=== PATIENT | male | born 1970 | race Two or more races ===

== ENCOUNTER 2018-12-30 15:44 | Inpatient (IN) | payer SELFPAY ==
[~2018-12-30] VITALS: Ht 170.2 cm; Wt 95.3 kg
[2018-12-30] MEDS ORDERED: IV NORMAL SALINE 1000ML BAG 1,000 ML IV ONE (16:30)
[2018-12-30] MEDS ORDERED: MORPHINE SULFATE 4 MG/ML VIAL. IV ONE (16:30)
[2018-12-30] MEDS ORDERED: ONDANSETRON PF 4 MG/2 ML VIAL. IV ONE (16:30)
--- NOTE | 2018-12-30 16:33 | PHYS DOC ---
Adult General Chief Complaint Chief Complaint: ABDOMINAL PAIN HPI HPI Patient is a 48 year old male that presents with left lower part of pain ongoing for week. The patient scrubbed pain is intermittent in nature and sharp. The patient states that his pain level 7 out of 10 in severity and has not taken any pain medicine before arrival. Denies hx of diverticulitis. He states that he a bowel movement while hours ago and that did not improve the pain. (JODI THORNTON APRN) Review of Systems Review of Systems Constitutional: Denies fever or chills [] Eyes: Denies change in visual acuity, redness, or eye pain [] HENT: Denies nasal congestion or sore throat [] Respiratory: Denies cough or shortness of breath [] Cardiovascular: No additional information not addressed in HPI [] GI: Reports abdominal pain, nausea, Denies vomiting, bloody stools or diarrhea [] : Denies dysuria or hematuria [] Musculoskeletal: Denies back pain or joint pain [] Integument: Denies rash or skin lesions [] Neurologic: Denies headache, focal weakness or sensory changes [] Endocrine: Denies polyuria or polydipsia [] Complete systems were reviewed and found to be within normal limits, except as documented in this note. (JODI THORNTON APRN) Current Medications Current Medications Current Medications Medications (Trade) Dose Ordered Sig/Casi Start Time Stop Time Status Last Admin Dose Admin Info (CONTRAST GIVEN -- Rx MONITORING) 1 each PRN DAILY PRN 12/30/18 17:15 01/01/19 17:14 Iohexol (Omnipaque 300 Mg/ml) 100 ml 1X ONCE 12/30/18 17:15 12/30/18 17:16 DC 12/30/18 17:23 100 ML Morphine Sulfate (Morphine Sulfate) 4 mg 1X ONCE 12/30/18 16:30 12/30/18 16:45 DC 12/30/18 17:02 4 MG Ondansetron HCl (Zofran) 4 mg 1X ONCE 12/30/18 16:30 12/30/18 16:45 DC 12/30/18 17:00 4 MG Sodium Chloride 1,000 ml @ 1,000 mls/hr 1X ONCE 12/30/18 16:30 12/30/18 17:29 DC 12/30/18 17:02 1,000 MLS/HR (RAFA OH MD) Allergies Allergies Allergies Coded Allergies Type Severity Reaction Last Updated Verified No Known Drug Allergies 12/30/18 No (RAFA OH MD) Physical Exam Physical Exam Constitutional: Well developed, well nourished, no acute distress, non-toxic appearance. [] HENT: Normocephalic, atraumatic, bilateral external ears normal, oropharynx moist, no oral exudates, nose normal. [] Eyes: PERRLA, EOMI, conjunctiva normal, no discharge. [] Neck: Normal range of motion, no tenderness, supple, no stridor. [] Cardiovascular:Heart rate regular rhythm, no murmur [] Lungs & Thorax: Bilateral breath sounds clear to auscultation [] Abdomen: Bowel sounds normal, soft, LLQ abdominal tenderness, no masses, no pulsatile masses. [] Skin: Warm, dry, no erythema, no rash. [] Back: No tenderness, no CVA tenderness. [] Extremities: No tenderness, no cyanosis, no clubbing, ROM intact, no edema. [] Neurologic: Alert and oriented X 3, normal motor function, normal sensory function, no focal deficits noted. [] Psychologic: Affect normal, judgement normal, mood normal. [] (JODI THORNTON APRN) Current Patient Data Vital Signs Vital Signs Date Time Temp Pulse Resp B/P (MAP) Pulse Ox O2 Delivery O2 Flow Rate FiO2 12/30/18 17:26 98 18 123/68 (86) 98 Room Air 12/30/18 16:33 97.8 97.8 (RAFA OH MD) Lab Values Laboratory Tests Test 12/30/18 16:42 White Blood Count 13.9 x10^3/uL (4.0-11.0) H Red Blood Count 5.08 x10^6/uL (4.30-5.70) Hemoglobin 15.7 g/dL (13.0-17.5) Hematocrit 46.6 % (39.0-53.0) Mean Corpuscular Volume 92 fL (79-100) Mean Corpuscular Hemoglobin 31 pg (25-35) Mean Corpuscular Hemoglobin Concent 34 g/dL (31-37) Red Cell Distribution Width 13.0 % (11.5-14.5) Platelet Count 289 x10^3/uL (140-400) Neutrophils (%) (Auto) 77 % (31-73) H Lymphocytes (%) (Auto) 13 % (24-48) L Monocytes (%) (Auto) 8 % (0-9) Eosinophils (%) (Auto) 2 % (0-3) Basophils (%) (Auto) 1 % (0-3) Neutrophils # (Auto) 10.7 x10^3/uL (1.8-7.7) H Lymphocytes # (Auto) 1.9 x10^3/uL (1.0-4.8) Monocytes # (Auto) 1.0 x10^3/uL (0.0-1.1) Eosinophils # (Auto) 0.3 x10^3/uL (0.0-0.7) Basophils # (Auto) 0.1 x10^3/uL (0.0-0.2) Sodium Level 143 mmol/L (136-145) Potassium Level 3.9 mmol/L (3.5-5.1) Chloride Level 108 mmol/L (98-107) H Carbon Dioxide Level 26 mmol/L (21-32) Anion Gap 9 (6-14) Blood Urea Nitrogen 13 mg/dL (8-26) Creatinine 0.9 mg/dL (0.7-1.3) Estimated GFR (Cockcroft-Gault) 90.4 BUN/Creatinine Ratio 14 (6-20) Glucose Level 111 mg/dL (70-99) H Calcium Level 8.9 mg/dL (8.5-10.1) Total Bilirubin 0.4 mg/dL (0.2-1.0) Aspartate Amino Transferase (AST) 18 U/L (15-37) Alanine Aminotransferase (ALT) 42 U/L (16-63) Alkaline Phosphatase 69 U/L (46-116) Total Protein 7.6 g/dL (6.4-8.2) Albumin 4.1 g/dL (3.4-5.0) Albumin/Globulin Ratio 1.2 (1.0-1.7) Lipase 142 U/L (73-393) Laboratory Tests 12/30/18 16:42 Laboratory Tests 12/30/18 16:42 (RAFA OH MD) Lab Values Laboratory Tests Test 12/30/18 16:42 White Blood Count 13.9 x10^3/uL (4.0-11.0) H Red Blood Count 5.08 x10^6/uL (4.30-5.70) Hemoglobin 15.7 g/dL (13.0-17.5) Hematocrit 46.6 % (39.0-53.0) Mean Corpuscular Volume 92 fL (79-100) Mean Corpuscular Hemoglobin 31 pg (25-35) Mean Corpuscular Hemoglobin Concent 34 g/dL (31-37) Red Cell Distribution Width 13.0 % (11.5-14.5) Platelet Count 289 x10^3/uL (140-400) Neutrophils (%) (Auto) 77 % (31-73) H Lymphocytes (%) (Auto) 13 % (24-48) L Monocytes (%) (Auto) 8 % (0-9) Eosinophils (%) (Auto) 2 % (0-3) Basophils (%) (Auto) 1 % (0-3) Neutrophils # (Auto) 10.7 x10^3/uL (1.8-7.7) H Lymphocytes # (Auto) 1.9 x10^3/uL (1.0-4.8) Monocytes # (Auto) 1.0 x10^3/uL (0.0-1.1) Eosinophils # (Auto) 0.3 x10^3/uL (0.0-0.7) Basophils # (Auto) 0.1 x10^3/uL (0.0-0.2) Sodium Level 143 mmol/L (136-145) Potassium Level 3.9 mmol/L (3.5-5.1) Chloride Level 108 mmol/L (98-107) H Carbon Dioxide Level 26 mmol/L (21-32) Anion Gap 9 (6-14) Blood Urea Nitrogen 13 mg/dL (8-26) Creatinine 0.9 mg/dL (0.7-1.3) Estimated GFR (Cockcroft-Gault) 90.4 BUN/Creatinine Ratio 14 (6-20) Glucose Level 111 mg/dL (70-99) H Calcium Level 8.9 mg/dL (8.5-10.1) Total Bilirubin 0.4 mg/dL (0.2-1.0) Aspartate Amino Transferase (AST) 18 U/L (15-37) Alanine Aminotransferase (ALT) 42 U/L (16-63) Alkaline Phosphatase 69 U/L (46-116) Total Protein 7.6 g/dL (6.4-8.2) Albumin 4.1 g/dL (3.4-5.0) Albumin/Globulin Ratio 1.2 (1.0-1.7) Lipase 142 U/L (73-393) Laboratory Tests 12/30/18 16:42 Laboratory Tests 12/30/18 16:42 (JODI THORNTON APRN) EKG EKG [] (JODI THORNTON APRN) Radiology/Procedures Radiology/Procedures [][facility] [address] [place] [address] IMAGING REPORT Signed PATIENT: MARIA L ADLERUNT: [id number] : 1970 LOCATION: ER AGE: 48 SEX: M EXAM STATUS: REG ER ORD. PHYSICIAN: JODI THORNTON APRN REASON: llq abdominal pain PROCEDURE: CT ABD PELV W/ IV CONTRST ONLY CT abdomen and pelvis with contrast TECHNIQUE: Helical CT imaging abdomen and pelvis with 75 mL Omnipaque 300 intravenous contrast. PQRS statement: CT scans at this facility use dose reduction including either automated exposure control, iterative reconstructions, and /or weight based radiation dosing via mA and kV modification when appropriate to reduce radiation dose to as low as reasonably achievable. HISTORY: Left lower quadrant abdominal pain. Abdomen findings: Mild discoid atelectasis lung bases. Lumbar disc bulges with spinal canal stenoses. T12 thoracic ossified disc protrusion with partial severe canal stenosis. Bilateral renal small subcentimeter hypodense lesions are too small to characterize due to volume averaging. Exophytic left renal midpole 1.2 cm cyst with a density 13 units. Pancreas, adrenal glands, spleen, liver and gallbladder are unremarkable. Appendix is negative. Left colonic diverticulosis with sigmoid diverticulitis with surrounding edema, no evidence of perforation with no pneumoperitoneum or abscess evident. No abdominal fluid or adenopathy. Mild calcified plaque of the aorta. Pelvis findings: Bladder, prostate, rectum and bones are unremarkable. No fluid or adenopathy. IMPRESSION: 1. Sigmoid colon diverticulitis. No abscess evident. 2. The appendix is negative. Electronically signed by: Tom Sky MD (12/30/2018 5:35 PM) [facility] DICTATED and SIGNED BY: TOM SKY MD DATE: 12/30/181734 (JODI THORNTON APRN) Course & Med Decision Making Course & Med Decision Making Pertinent Labs and Imaging studies reviewed. (See chart for details) Will get labs, CT, and give supportive care. CT shows diverticulitis, labs show elevated WBC of 13.9. Patient has been tachycardic in ER. Will order antibiotics and admit to hospital. Discussed with Dr. Rice who agrees to admission to hospital ([id number]). (JODI THORNTON APRN) Course & Med Decision Making I was not involved in the care of this patient after 1800 on 12/30/18. (RAFA OH MD) Dragon Disclaimer Dragon Disclaimer This electronic medical record was generated, in whole or in part, using a voice recognition dictation system. (JODI THORNTON APRN) Departure Departure Impression: Primary Impression: Diverticulitis Disposition: ADMITTED INPATIENT Admitting Physician: TOYA (JODI THORNTON APRN) Condition: STABLE Referrals: NO PCP (PCP) Scripts Oxycodone/Apap 5-325 (PERCOCET 5-325 MG TABLET ) 1 Each Tablet 1 TAB PO PRN Q6HRS PRN for PAIN for 6 Days, #24 TAB Prov: FLAVIO VENTURA MD 12/31/18 Ciprofloxacin Hcl (CIPROFLOXACIN HCL) 500 Mg Tablet 1 TAB PO BID for Diverticulitis for 10 Days, #20 TAB Prov: FLAVIO VENTURA MD 12/31/18 Polyethylene Glycol 3350 (POLYETHYLENE GLYCOL 3350) 17 Gm Powd.pack 17 GM PO DAILY for constipation for 10 Days, #10 PKT Prov: FLAVIO VENTURA MD 12/31/18 Psyllium Husk/Aspartame (METAMUCIL FIBER SINGLES PACKET) 3.4 Gm Powd.pack 1 PKT PO DAILY for Constipation for 10 Days, #10 PKT Prov: FLAVIO VENTURA MD 12/31/18 Docusate Sodium (DOCUSATE SODIUM) 100 Mg Capsule 100 MG PO DAILY for Constipation for 10 Days, #10 CAP Prov: FLAVIO VENTURA MD 12/31/18 Metronidazole (FLAGYL) 500 Mg Tablet 500 MG PO Q8HRS for Diverticulitis for 10 Days, #30 TAB Prov: FLAVIO VENTURA MD 12/31/18 JODI THORNTON APRN Dec 30, 2018 16:33 RAFA OH MD Dec 31, 2018 18:19
[2018-12-30 16:49] LABS: BASO # 0.1 x10^3/uL (0.0-0.2); BASO % 1 % (0-3); EOS # 0.3 x10^3/uL (0.0-0.7); EOS % 2 % (0-3); HEMATOCRIT 46.6 % (39.0-53.0); HEMOGLOBIN 15.7 g/dL (13.0-17.5); LYMPH # 1.9 x10^3/uL (1.0-4.8); LYMPH % 13 % (24-48); MEAN CORPUSCULAR HEMOGLOBIN 31 pg (25-35); MEAN CORPUSCULAR HGB CONC 34 g/dL (31-37); MEAN CORPUSCULAR VOLUME 92 fL (79-100); MONO % 8 % (0-9); NEUT # 10.7 x10^3/uL (1.8-7.7); NEUT % 77 % (31-73); PLATELET COUNT 289 x10^3/uL (140-400); RED BLOOD COUNT 5.08 x10^6/uL (4.30-5.70); WHITE BLOOD COUNT 13.9 x10^3/uL (4.0-11.0)
[2018-12-30 17:01] LABS: CALCIUM 8.9 mg/dL (8.5-10.1); CREATININE 0.9 mg/dL (0.7-1.3); GFR 90.4; POTASSIUM 3.9 mmol/L (3.5-5.1)
[2018-12-30 17:07] LABS: ALBUMIN 4.1 g/dL (3.4-5.0); ALBUMIN/GLOBULIN RATIO 1.2 (1.0-1.7); TOTAL BILIRUBIN 0.4 mg/dL (0.2-1.0); TOTAL PROTEIN 7.6 g/dL (6.4-8.2)
[2018-12-30] MEDS ORDERED: CONTRAST GIVEN. MC PRN (17:15)
[2018-12-30] MEDS ORDERED: IOHEXOL 300 MG/ML 100ML VIAL. IV ONE (17:15)
--- NOTE | 2018-12-30 17:38 | RAD ---
CT abdomen and pelvis with contrast TECHNIQUE: Helical CT imaging abdomen and pelvis with 75 mL Omnipaque 300 intravenous contrast. PQRS statement: CT scans at this facility use dose reduction including either automated exposure control, iterative reconstructions, and /or weight based radiation dosing via mA and kV modification when appropriate to reduce radiation dose to as low as reasonably achievable. HISTORY: Left lower quadrant abdominal pain. Abdomen findings: Mild discoid atelectasis lung bases. Lumbar disc bulges with spinal canal stenoses. T12 thoracic ossified disc protrusion with partial severe canal stenosis. Bilateral renal small subcentimeter hypodense lesions are too small to characterize due to volume averaging. Exophytic left renal midpole 1.2 cm cyst with a density 13 units. Pancreas, adrenal glands, spleen, liver and gallbladder are unremarkable. Appendix is negative. Left colonic diverticulosis with sigmoid diverticulitis with surrounding edema, no evidence of perforation with no pneumoperitoneum or abscess evident. No abdominal fluid or adenopathy. Mild calcified plaque of the aorta. Pelvis findings: Bladder, prostate, rectum and bones are unremarkable. No fluid or adenopathy. IMPRESSION: 1. Sigmoid colon diverticulitis. No abscess evident. 2. The appendix is negative. Electronically signed by: Abrahan Sky MD (12/30/2018 5:35 PM) [facility]
[2018-12-30] MEDS ORDERED: cefTRIAXone IV Push 1 GM VIAL. IVP ONE (18:00)
[2018-12-30] MEDS ORDERED: ONDANSETRON PF 4 MG/2 ML VIAL. IV PRN (18:45)
[2018-12-30] MEDS ORDERED: MORPHINE SULFATE 2 MG/ML VIAL. IV PRN (18:45)
[2018-12-30 18:50] LABS: BILIRUBIN,URINE NEGATIVE (NEG); CLARITY,URINE CLEAR; COLOR,URINE YELLOW; NITRITE,URINE NEGATIVE (NEG); PROTEIN,URINE NEGATIVE (NEG-TRACE); UROBILINOGEN,URINE 0.2 mg/dL (0.2 mg/dL)
[2018-12-30 19:02] LABS: BACTERIA,URINE 0 /HPF (0-FEW); SQUAMOUS EPITHELIAL CELL,UR MOD /LPF
--- NOTE | 2018-12-30 19:30 | NUR ---
ADMISSION NOTE The patient, MARIA L ADLER, 48 y/o, M admitted by CARLIE PACHECO MD, arrived to room 556 via wheelchair accompanied by ED staff and roommate. The pt was given written information regarding hospital policies, unit procedures and contact persons. Valuables were checked and left in room with pt. Pt screened for flu vaccine and offered, pt declined.
[2018-12-30 20:00] VITALS: BP 125/72
--- NOTE | 2018-12-30 22:26 | PDOC1 ---
History and Physical Date of Admission Date of Admission DATE: 12/30/18 TIME: 22:25 History of Present Illness History of Present Illness Ang is a 48 year old male, primarily icelandic speaking, that presents with left lower part of pain ongoing for week. he is hungry and thirsty, but complains of pain, worse with movement, pain 6/10 no diarrhea, no n.v, no fever. . Denies hx of diverticulitis. Had a normal bowel movement hours ago and that did not improve the pain. Social History ALCOHOL: rare Drugs: None Current Problem List Problem List Problems Medical Problems: (1) Diverticulitis Status: Acute Current Medications Current Medications Current Medications Morphine Sulfate (Morphine Sulfate) 4 mg 1X ONCE IV Last administered on 12/30/18at 17:02; Start 12/30/18 at 16:30; Stop 12/30/18 at 16:45; Status DC Sodium Chloride 1,000 ml @ 1,000 mls/hr 1X ONCE IV Last administered on 12/30/18at 17:02; Start 12/30/18 at 16:30; Stop 12/30/18 at 17:29; Status DC Ondansetron HCl (Zofran) 4 mg 1X ONCE IV Last administered on 12/30/18at 17:00; Start 12/30/18 at 16:30; Stop 12/30/18 at 16:45; Status DC Iohexol (Omnipaque 300 Mg/ml) 100 ml 1X ONCE IV Last administered on 12/30/18at 17:23; Start 12/30/18 at 17:15; Stop 12/30/18 at 17:16; Status DC Info (CONTRAST GIVEN -- Rx MONITORING) 1 each PRN DAILY PRN MC SEE COMMENTS; Start 12/30/18 at 17:15; Stop 01/01/19 at 17:14 Metronidazole 100 ml @ 100 mls/hr 1X ONCE IV Last administered on 12/30/18at 18:23; Start 12/30/18 at 18:00; Stop 12/30/18 at 18:59; Status DC Ceftriaxone Sodium (Rocephin) 1 gm 1X ONCE IVP Last administered on 12/30/18at 18:21; Start 12/30/18 at 18:00; Stop 12/30/18 at 18:01; Status DC Ondansetron HCl (Zofran) 4 mg PRN Q8HRS PRN IV NAUSEA/VOMITING; Start 12/30/18 at 18:45; Stop 12/31/18 at 18:44 Morphine Sulfate (Morphine Sulfate) 2 mg PRN Q2HR PRN IV PAIN; Start 12/30/18 at 18:45; Stop 12/31/18 at 23:58 Allergies Allergies: Coded Allergies: No Known Drug Allergies (Unverified , 12/30/18) ROS General: No: Chills, Night Sweats, Fatigue, Malaise, Appetite, Other PSYCHOLOGICAL ROS: No: Anxiety, Behavioral Disorder, Concentration difficultie, Decreased libido, Depression, Disorientation, Hallucinations, Hostility, Irritablity, Memory difficulties, Mood Swings, Obsessive thoughts, Physical abuse, Sexual abuse, Sleep disturbances, Suicidal ideation, Other Eyes: No Blurry vision, No Decreased vision, No Double vision, No Dry eyes, No Excessive tearing, No Eye Pain, No Itchy Eyes, No Loss of vision, No Photophobia, No Scotomata, No Uses contacts, No Uses glasses, No Other HEENT: No: Heacaches, Visual Changes, Hearing change, Nasal congestion, Nasal discharge, Oral lesions, Sinus pain, Sore Throat, Epistaxis, Sneezing, Snoring, Tinnitus, Vertigo, Vocal changes, Other Musculoskeletal: No Gait Disturbance, No Joint Pain, No Joint Stiffness, No Joint Swelling, No Muscle Pain, No Muscular Weakness, No Pain In:, No Swelling In:, No Other Neurological: No Behavorial Changes, No Bowel/Bladder ControlChng, No Confusion, No Dizziness, No Gait Disturbance, No Headaches, No Impaired Coord/balance, No Memory Loss, No Numbness/Tingling, No Seizures, No Speech Problems, No Tremors, No Visual Changes, No Weakness, No Other Skin: No Dry Skin, No Eczema, No Hair Changes, No Lumps, No Mole Changes, No Mottling, No Nail Changes, No Pruritus, No Rash, No Skin Lesion Changes, No Other, No Acne Physical Exam General: Alert, Oriented X3, Cooperative, mild distress HEENT: Atraumatic, PERRLA, Mucous membr. moist/pink Lungs: Clear to auscultation Heart: S1S2, RRR Abdomen: Soft, Other (tender LLQ, no guarding or rebound) Extremities: No clubbing, Normal pulses Skin: No breakdown, No significant lesion Neuro: Normal speech, Normal tone, Cranial nerves 3-12 NL Psych/Mental Status: Mental status NL, Mood NL Vitals Vitals Vital Signs Date Time Temp Pulse Resp B/P (MAP) Pulse Ox O2 Delivery O2 Flow Rate FiO2 12/30/18 19:30 Room Air 12/30/18 17:56 90 18 128/59 (82) 98 12/30/18 16:33 97.8 97.8 Labs Labs Laboratory Tests Test 12/30/18 16:42 12/30/18 18:14 White Blood Count 13.9 x10^3/uL (4.0-11.0) Red Blood Count 5.08 x10^6/uL (4.30-5.70) Hemoglobin 15.7 g/dL (13.0-17.5) Hematocrit 46.6 % (39.0-53.0) Mean Corpuscular Volume 92 fL (79-100) Mean Corpuscular Hemoglobin 31 pg (25-35) Mean Corpuscular Hemoglobin Concent 34 g/dL (31-37) Red Cell Distribution Width 13.0 % (11.5-14.5) Platelet Count 289 x10^3/uL (140-400) Neutrophils (%) (Auto) 77 % (31-73) Lymphocytes (%) (Auto) 13 % (24-48) Monocytes (%) (Auto) 8 % (0-9) Eosinophils (%) (Auto) 2 % (0-3) Basophils (%) (Auto) 1 % (0-3) Neutrophils # (Auto) 10.7 x10^3/uL (1.8-7.7) Lymphocytes # (Auto) 1.9 x10^3/uL (1.0-4.8) Monocytes # (Auto) 1.0 x10^3/uL (0.0-1.1) Eosinophils # (Auto) 0.3 x10^3/uL (0.0-0.7) Basophils # (Auto) 0.1 x10^3/uL (0.0-0.2) Sodium Level 143 mmol/L (136-145) Potassium Level 3.9 mmol/L (3.5-5.1) Chloride Level 108 mmol/L (98-107) Carbon Dioxide Level 26 mmol/L (21-32) Anion Gap 9 (6-14) Blood Urea Nitrogen 13 mg/dL (8-26) Creatinine 0.9 mg/dL (0.7-1.3) Estimated GFR (Cockcroft-Gault) 90.4 BUN/Creatinine Ratio 14 (6-20) Glucose Level 111 mg/dL (70-99) Calcium Level 8.9 mg/dL (8.5-10.1) Total Bilirubin 0.4 mg/dL (0.2-1.0) Aspartate Amino Transf (AST/SGOT) 18 U/L (15-37) Alanine Aminotransferase (ALT/SGPT) 42 U/L (16-63) Alkaline Phosphatase 69 U/L (46-116) Total Protein 7.6 g/dL (6.4-8.2) Albumin 4.1 g/dL (3.4-5.0) Albumin/Globulin Ratio 1.2 (1.0-1.7) Lipase 142 U/L (73-393) Urine Collection Type Unknown Urine Color Yellow Urine Clarity Clear Urine pH 6.0 Urine Specific [place] >=1.030 Urine Protein Negative mg/dL (NEG-TRACE) Urine Glucose (UA) Negative mg/dL (NEG) Urine Ketones (Stick) Negative mg/dL (NEG) Urine Blood Negative (NEG) Urine Nitrite Negative (NEG) Urine Bilirubin Negative (NEG) Urine Urobilinogen Dipstick 0.2 mg/dL (0.2 mg/dL) Urine Leukocyte Esterase Negative (NEG) Urine RBC 1-2 /HPF (0-2) Urine WBC 1-4 /HPF (0-4) Urine Squamous Epithelial Cells Mod /LPF Urine Bacteria 0 /HPF (0-FEW) Laboratory Tests Test 12/30/18 16:42 12/30/18 18:14 White Blood Count 13.9 x10^3/uL (4.0-11.0) Red Blood Count 5.08 x10^6/uL (4.30-5.70) Hemoglobin 15.7 g/dL (13.0-17.5) Hematocrit 46.6 % (39.0-53.0) Mean Corpuscular Volume 92 fL (79-100) Mean Corpuscular Hemoglobin 31 pg (25-35) Mean Corpuscular Hemoglobin Concent 34 g/dL (31-37) Red Cell Distribution Width 13.0 % (11.5-14.5) Platelet Count 289 x10^3/uL (140-400) Neutrophils (%) (Auto) 77 % (31-73) Lymphocytes (%) (Auto) 13 % (24-48) Monocytes (%) (Auto) 8 % (0-9) Eosinophils (%) (Auto) 2 % (0-3) Basophils (%) (Auto) 1 % (0-3) Neutrophils # (Auto) 10.7 x10^3/uL (1.8-7.7) Lymphocytes # (Auto) 1.9 x10^3/uL (1.0-4.8) Monocytes # (Auto) 1.0 x10^3/uL (0.0-1.1) Eosinophils # (Auto) 0.3 x10^3/uL (0.0-0.7) Basophils # (Auto) 0.1 x10^3/uL (0.0-0.2) Sodium Level 143 mmol/L (136-145) Potassium Level 3.9 mmol/L (3.5-5.1) Chloride Level 108 mmol/L (98-107) Carbon Dioxide Level 26 mmol/L (21-32) Anion Gap 9 (6-14) Blood Urea Nitrogen 13 mg/dL (8-26) Creatinine 0.9 mg/dL (0.7-1.3) Estimated GFR (Cockcroft-Gault) 90.4 BUN/Creatinine Ratio 14 (6-20) Glucose Level 111 mg/dL (70-99) Calcium Level 8.9 mg/dL (8.5-10.1) Total Bilirubin 0.4 mg/dL (0.2-1.0) Aspartate Amino Transf (AST/SGOT) 18 U/L (15-37) Alanine Aminotransferase (ALT/SGPT) 42 U/L (16-63) Alkaline Phosphatase 69 U/L (46-116) Total Protein 7.6 g/dL (6.4-8.2) Albumin 4.1 g/dL (3.4-5.0) Albumin/Globulin Ratio 1.2 (1.0-1.7) Lipase 142 U/L (73-393) Urine Collection Type Unknown Urine Color Yellow Urine Clarity Clear Urine pH 6.0 Urine Specific [place] >=1.030 Urine Protein Negative mg/dL (NEG-TRACE) Urine Glucose (UA) Negative mg/dL (NEG) Urine Ketones (Stick) Negative mg/dL (NEG) Urine Blood Negative (NEG) Urine Nitrite Negative (NEG) Urine Bilirubin Negative (NEG) Urine Urobilinogen Dipstick 0.2 mg/dL (0.2 mg/dL) Urine Leukocyte Esterase Negative (NEG) Urine RBC 1-2 /HPF (0-2) Urine WBC 1-4 /HPF (0-4) Urine Squamous Epithelial Cells Mod /LPF Urine Bacteria 0 /HPF (0-FEW) VTE Prophylaxis Ordered VTE Prophylaxis Devices: No VTE Pharmacological Prophylaxi: Yes Assessment/Plan Assessment/Plan sepsis, diverticulitis admit IV fluid abx, ID consult, CARLIE PACHECO MD Dec 30, 2018 22:26
[2018-12-30 23:00] VITALS: BP 128/76
[2018-12-30] MEDS ORDERED: ZOLPIDEM 5 MG TABLET. PO PRN (23:00)
[2018-12-30] MEDS ORDERED: CIPROFLOXACIN HCL 250 MG TABLET. PO ONE (23:00)
[2018-12-30] MEDS ORDERED: metroNIDAZOLE 500 MG TABLET PO ONE (23:00)
[2018-12-30] MEDS: oxyCODONE/APAP 5/325 1 TAB TABLET PO PRN (23:11)
[2018-12-31 03:00] VITALS: BP 113/69
[2018-12-31] MEDS: metroNIDAZOLE 500 MG TABLET PO SCH ×2 (05:54→14:23)
[2018-12-31 07:00] VITALS: BP 122/74
--- NOTE | 2018-12-31 08:42 | PDOC ---
PROGRESS NOTES Chief Complaint Chief Complaint A/P: Sepsis - leukocytosis, tachycardia, diverticulitis found. IVF and empiric cipro and flagyl initiated Diverticulitis - will place on fiber supplement, cont antibiotics FEN - Low residue PPX - Lovenox FULL CODE Dispo - inpatient History of Present Illness History of Present Illness Mr Jeff is a 48 year old male, primarily [place] speaking, who presents with left lower abdominal pain ongoing for week. Worse with movement, pain 6/10, no diarrhea, no n.v, no fever. BM does not improve pain. CT findings consistent with sigmoid diverticulitis. Pain improved, transitioning to PO antibiotics this morning, added bowel regimen. Discussed low residue diet. He is somewhat anxious for d/c. I initially told him possibly home tomorrow morning, but if he tolerates PO well throughout the day without pain and has a BM he can go home later. Vitals Vitals Vital Signs Date Time Temp Pulse Resp B/P (MAP) Pulse Ox O2 Delivery O2 Flow Rate FiO2 12/31/18 07:00 98.1 67 16 122/74 (90) 95 Room Air 98.1 Physical Exam General: Alert, Oriented X3, Cooperative, mild distress Abdomen: Soft, Other (tender LLQ, no guarding or rebound) Extremities: No clubbing, Normal pulses Skin: No breakdown, No significant lesion Labs LABS Laboratory Tests Test 12/30/18 16:42 12/30/18 18:14 White Blood Count 13.9 x10^3/uL (4.0-11.0) Red Blood Count 5.08 x10^6/uL (4.30-5.70) Hemoglobin 15.7 g/dL (13.0-17.5) Hematocrit 46.6 % (39.0-53.0) Mean Corpuscular Volume 92 fL (79-100) Mean Corpuscular Hemoglobin 31 pg (25-35) Mean Corpuscular Hemoglobin Concent 34 g/dL (31-37) Red Cell Distribution Width 13.0 % (11.5-14.5) Platelet Count 289 x10^3/uL (140-400) Neutrophils (%) (Auto) 77 % (31-73) Lymphocytes (%) (Auto) 13 % (24-48) Monocytes (%) (Auto) 8 % (0-9) Eosinophils (%) (Auto) 2 % (0-3) Basophils (%) (Auto) 1 % (0-3) Neutrophils # (Auto) 10.7 x10^3/uL (1.8-7.7) Lymphocytes # (Auto) 1.9 x10^3/uL (1.0-4.8) Monocytes # (Auto) 1.0 x10^3/uL (0.0-1.1) Eosinophils # (Auto) 0.3 x10^3/uL (0.0-0.7) Basophils # (Auto) 0.1 x10^3/uL (0.0-0.2) Sodium Level 143 mmol/L (136-145) Potassium Level 3.9 mmol/L (3.5-5.1) Chloride Level 108 mmol/L (98-107) Carbon Dioxide Level 26 mmol/L (21-32) Anion Gap 9 (6-14) Blood Urea Nitrogen 13 mg/dL (8-26) Creatinine 0.9 mg/dL (0.7-1.3) Estimated GFR (Cockcroft-Gault) 90.4 BUN/Creatinine Ratio 14 (6-20) Glucose Level 111 mg/dL (70-99) Calcium Level 8.9 mg/dL (8.5-10.1) Total Bilirubin 0.4 mg/dL (0.2-1.0) Aspartate Amino Transf (AST/SGOT) 18 U/L (15-37) Alanine Aminotransferase (ALT/SGPT) 42 U/L (16-63) Alkaline Phosphatase 69 U/L (46-116) Total Protein 7.6 g/dL (6.4-8.2) Albumin 4.1 g/dL (3.4-5.0) Albumin/Globulin Ratio 1.2 (1.0-1.7) Lipase 142 U/L (73-393) Urine Collection Type Unknown Urine Color Yellow Urine Clarity Clear Urine pH 6.0 Urine Specific [place] >=1.030 Urine Protein Negative mg/dL (NEG-TRACE) Urine Glucose (UA) Negative mg/dL (NEG) Urine Ketones (Stick) Negative mg/dL (NEG) Urine Blood Negative (NEG) Urine Nitrite Negative (NEG) Urine Bilirubin Negative (NEG) Urine Urobilinogen Dipstick 0.2 mg/dL (0.2 mg/dL) Urine Leukocyte Esterase Negative (NEG) Urine RBC 1-2 /HPF (0-2) Urine WBC 1-4 /HPF (0-4) Urine Squamous Epithelial Cells Mod /LPF Urine Bacteria 0 /HPF (0-FEW) Assessment and Plan Assessmemt and Plan Problems Medical Problems: (1) Diverticulitis Status: Acute Comment Review of Relevant I have reviewed the following items evaristo (where applicable) has been applied. Labs Laboratory Tests Test 12/30/18 16:42 12/30/18 18:14 White Blood Count 13.9 x10^3/uL (4.0-11.0) Red Blood Count 5.08 x10^6/uL (4.30-5.70) Hemoglobin 15.7 g/dL (13.0-17.5) Hematocrit 46.6 % (39.0-53.0) Mean Corpuscular Volume 92 fL (79-100) Mean Corpuscular Hemoglobin 31 pg (25-35) Mean Corpuscular Hemoglobin Concent 34 g/dL (31-37) Red Cell Distribution Width 13.0 % (11.5-14.5) Platelet Count 289 x10^3/uL (140-400) Neutrophils (%) (Auto) 77 % (31-73) Lymphocytes (%) (Auto) 13 % (24-48) Monocytes (%) (Auto) 8 % (0-9) Eosinophils (%) (Auto) 2 % (0-3) Basophils (%) (Auto) 1 % (0-3) Neutrophils # (Auto) 10.7 x10^3/uL (1.8-7.7) Lymphocytes # (Auto) 1.9 x10^3/uL (1.0-4.8) Monocytes # (Auto) 1.0 x10^3/uL (0.0-1.1) Eosinophils # (Auto) 0.3 x10^3/uL (0.0-0.7) Basophils # (Auto) 0.1 x10^3/uL (0.0-0.2) Sodium Level 143 mmol/L (136-145) Potassium Level 3.9 mmol/L (3.5-5.1) Chloride Level 108 mmol/L (98-107) Carbon Dioxide Level 26 mmol/L (21-32) Anion Gap 9 (6-14) Blood Urea Nitrogen 13 mg/dL (8-26) Creatinine 0.9 mg/dL (0.7-1.3) Estimated GFR (Cockcroft-Gault) 90.4 BUN/Creatinine Ratio 14 (6-20) Glucose Level 111 mg/dL (70-99) Calcium Level 8.9 mg/dL (8.5-10.1) Total Bilirubin 0.4 mg/dL (0.2-1.0) Aspartate Amino Transf (AST/SGOT) 18 U/L (15-37) Alanine Aminotransferase (ALT/SGPT) 42 U/L (16-63) Alkaline Phosphatase 69 U/L (46-116) Total Protein 7.6 g/dL (6.4-8.2) Albumin 4.1 g/dL (3.4-5.0) Albumin/Globulin Ratio 1.2 (1.0-1.7) Lipase 142 U/L (73-393) Urine Collection Type Unknown Urine Color Yellow Urine Clarity Clear Urine pH 6.0 Urine Specific [place] >=1.030 Urine Protein Negative mg/dL (NEG-TRACE) Urine Glucose (UA) Negative mg/dL (NEG) Urine Ketones (Stick) Negative mg/dL (NEG) Urine Blood Negative (NEG) Urine Nitrite Negative (NEG) Urine Bilirubin Negative (NEG) Urine Urobilinogen Dipstick 0.2 mg/dL (0.2 mg/dL) Urine Leukocyte Esterase Negative (NEG) Urine RBC 1-2 /HPF (0-2) Urine WBC 1-4 /HPF (0-4) Urine Squamous Epithelial Cells Mod /LPF Urine Bacteria 0 /HPF (0-FEW) Laboratory Tests Test 12/30/18 16:42 12/30/18 18:14 White Blood Count 13.9 x10^3/uL (4.0-11.0) Red Blood Count 5.08 x10^6/uL (4.30-5.70) Hemoglobin 15.7 g/dL (13.0-17.5) Hematocrit 46.6 % (39.0-53.0) Mean Corpuscular Volume 92 fL (79-100) Mean Corpuscular Hemoglobin 31 pg (25-35) Mean Corpuscular Hemoglobin Concent 34 g/dL (31-37) Red Cell Distribution Width 13.0 % (11.5-14.5) Platelet Count 289 x10^3/uL (140-400) Neutrophils (%) (Auto) 77 % (31-73) Lymphocytes (%) (Auto) 13 % (24-48) Monocytes (%) (Auto) 8 % (0-9) Eosinophils (%) (Auto) 2 % (0-3) Basophils (%) (Auto) 1 % (0-3) Neutrophils # (Auto) 10.7 x10^3/uL (1.8-7.7) Lymphocytes # (Auto) 1.9 x10^3/uL (1.0-4.8) Monocytes # (Auto) 1.0 x10^3/uL (0.0-1.1) Eosinophils # (Auto) 0.3 x10^3/uL (0.0-0.7) Basophils # (Auto) 0.1 x10^3/uL (0.0-0.2) Sodium Level 143 mmol/L (136-145) Potassium Level 3.9 mmol/L (3.5-5.1) Chloride Level 108 mmol/L (98-107) Carbon Dioxide Level 26 mmol/L (21-32) Anion Gap 9 (6-14) Blood Urea Nitrogen 13 mg/dL (8-26) Creatinine 0.9 mg/dL (0.7-1.3) Estimated GFR (Cockcroft-Gault) 90.4 BUN/Creatinine Ratio 14 (6-20) Glucose Level 111 mg/dL (70-99) Calcium Level 8.9 mg/dL (8.5-10.1) Total Bilirubin 0.4 mg/dL (0.2-1.0) Aspartate Amino Transf (AST/SGOT) 18 U/L (15-37) Alanine Aminotransferase (ALT/SGPT) 42 U/L (16-63) Alkaline Phosphatase 69 U/L (46-116) Total Protein 7.6 g/dL (6.4-8.2) Albumin 4.1 g/dL (3.4-5.0) Albumin/Globulin Ratio 1.2 (1.0-1.7) Lipase 142 U/L (73-393) Urine Collection Type Unknown Urine Color Yellow Urine Clarity Clear Urine pH 6.0 Urine Specific [place] >=1.030 Urine Protein Negative mg/dL (NEG-TRACE) Urine Glucose (UA) Negative mg/dL (NEG) Urine Ketones (Stick) Negative mg/dL (NEG) Urine Blood Negative (NEG) Urine Nitrite Negative (NEG) Urine Bilirubin Negative (NEG) Urine Urobilinogen Dipstick 0.2 mg/dL (0.2 mg/dL) Urine Leukocyte Esterase Negative (NEG) Urine RBC 1-2 /HPF (0-2) Urine WBC 1-4 /HPF (0-4) Urine Squamous Epithelial Cells Mod /LPF Urine Bacteria 0 /HPF (0-FEW) Medications Current Medications Morphine Sulfate (Morphine Sulfate) 4 mg 1X ONCE IV Last administered on 12/30/18 17:02; Start 12/30/18 at 16:30; Stop 12/30/18 at 16:45; Status DC Sodium Chloride 1,000 ml @ 1,000 mls/hr 1X ONCE IV Last administered on 12/30/18at 17:02; Start 12/30/18 at 16:30; Stop 12/30/18 at 17:29; Status DC Ondansetron HCl (Zofran) 4 mg 1X ONCE IV Last administered on 12/30/18at 17:00; Start 12/30/18 at 16:30; Stop 12/30/18 at 16:45; Status DC Iohexol (Omnipaque 300 Mg/ml) 100 ml 1X ONCE IV Last administered on 12/30/18at 17:23; Start 12/30/18 at 17:15; Stop 12/30/18 at 17:16; Status DC Info (CONTRAST GIVEN -- Rx MONITORING) 1 each PRN DAILY PRN MC SEE COMMENTS; Start 12/30/18 at 17:15; Stop 01/01/19 at 17:14 Metronidazole 100 ml @ 100 mls/hr 1X ONCE IV Last administered on 12/30/18at 18:23; Start 12/30/18 at 18:00; Stop 12/30/18 at 18:59; Status DC Ceftriaxone Sodium (Rocephin) 1 gm 1X ONCE IVP Last administered on 12/30/18at 18:21; Start 12/30/18 at 18:00; Stop 12/30/18 at 18:01; Status DC Ondansetron HCl (Zofran) 4 mg PRN Q8HRS PRN IV NAUSEA/VOMITING; Start 12/30/18 at 18:45; Stop 12/31/18 at 18:44 Morphine Sulfate (Morphine Sulfate) 2 mg PRN Q2HR PRN IV PAIN; Start 12/30/18 at 18:45; Stop 12/31/18 at 23:58 Oxycodone/ Acetaminophen (Percocet 5/325) 1 tab PRN Q4HRS PRN PO PAIN Last a dministered on 12/30/18at 23:11; Start 12/30/18 at 23:00 Metronidazole (Flagyl) 500 mg Q8HRS PO Last administered on 12/31/18at 05:54; Start 12/31/18 at 06:00 Metronidazole (Flagyl) 500 mg 1X ONCE PO Last administered on 12/30/18 23:11; Start 12/30/18 at 23:00; Stop 12/30/18 at 23:01; Status DC Ciprofloxacin (Cipro) 500 mg 1X ONCE PO Last administered on 12/30/18at 23:11; Start 12/30/18 at 23:00; Stop 12/30/18 at 23:01; Status DC Ciprofloxacin (Cipro) 500 mg BID PO ; Start 12/31/18 at 09:00 Zolpidem Tartrate (Ambien) 5 mg PRN QHS PRN PO INSOMNIA Last administered on 12/30/18at 23:11; Start 12/30/18 at 23:00 Vitals/I & O Vital Sign - Last 24 Hours 12/30/18 12/30/18 12/30/18 12/30/18 16:33 16:56 17:26 17:56 Temp 97.8 97.8 Pulse 103 98 98 90 Resp 18 18 B/P (MAP) 139/91 (107) 130/76 (94) 123/68 (86) 128/59 (82) Pulse Ox 96 95 98 98 O2 Delivery Room Air Room Air Room Air Room Air 12/30/18 12/30/18 12/30/18 12/30/18 19:30 20:00 23:00 23:11 Temp 98.0 97.9 98.0 97.9 Pulse 81 69 Resp 18 18 B/P (MAP) 125/72 (89) 128/76 (93) Pulse Ox 98 98 O2 Delivery Room Air Room Air Room Air Room Air 12/31/18 12/31/18 12/31/18 00:20 03:00 07:00 Temp 97.7 98.1 97.7 98.1 Pulse 56 67 Resp 18 16 B/P (MAP) 113/69 (84) 122/74 (90) Pulse Ox 97 95 O2 Delivery Room Air Room Air Room Air Intake and Output 12/30/18 12/30/18 12/31/18 14:59 22:59 06:59 Intake Total 1100 ml 640 ml Balance 1100 ml 640 ml FLAVIO VENTURA MD Dec 31, 2018 08:42
[2018-12-31] MEDS ORDERED: PSYLLIUM HUSK (SUGAR FREE) 1 PKT PACKET PO SCH (09:00)
[2018-12-31] MEDS ORDERED: POLYETHYLENE GLYCOL 3350 17 GM PACKET. PO SCH (09:00)
[2018-12-31] MEDS ORDERED: DOCUSATE SODIUM 100 MG CAPSULE. PO SCH (09:00)
[2018-12-31] MEDS ORDERED: CIPROFLOXACIN HCL 250 MG TABLET. PO SCH (09:00)
[2018-12-31] MEDS: oxyCODONE/APAP 5/325 1 TAB TABLET PO PRN ×2 (09:14→14:28)
--- NOTE | 2018-12-31 09:54 | PDOC ---
Infectious Disease Note Vital Signs: Vital Signs Vital Signs Date Time Temp Pulse Resp B/P (MAP) Pulse Ox O2 Delivery O2 Flow Rate FiO2 12/31/18 09:14 Room Air 12/31/18 07:00 98.1 67 16 122/74 (90) 95 98.1 Medications: Inpatient Meds: Current Medications Medications (Trade) Dose Ordered Sig/Casi Start Time Stop Time Status Last Admin Dose Admin Ceftriaxone Sodium (Rocephin) 1 gm 1X ONCE 12/30/18 18:00 12/30/18 18:01 DC 12/30/18 18:21 1 GM Ciprofloxacin (Cipro) 500 mg BID 12/31/18 09:00 12/31/18 09:10 500 MG Docusate Sodium (Colace) 100 mg DAILY 12/31/18 09:00 12/31/18 09:10 100 MG Info (CONTRAST GIVEN -- Rx MONITORING) 1 each PRN DAILY PRN 12/30/18 17:15 01/01/19 17:14 Iohexol (Omnipaque 300 Mg/ml) 100 ml 1X ONCE 12/30/18 17:15 12/30/18 17:16 DC 12/30/18 17:23 100 ML Metronidazole (Flagyl) 500 mg 1X ONCE 12/30/18 23:00 12/30/18 23:01 DC 12/30/18 23:11 500 MG Morphine Sulfate (Morphine Sulfate) 2 mg PRN Q2HR PRN 12/30/18 18:45 12/31/18 23:58 Ondansetron HCl (Zofran) 4 mg PRN Q8HRS PRN 12/30/18 18:45 12/31/18 18:44 Oxycodone/ Acetaminophen (Percocet 5/325) 1 tab PRN Q4HRS PRN 12/30/18 23:00 12/31/18 09:14 1 TAB Polyethylene Glycol (miraLAX PACKET) 17 gm DAILY 12/31/18 09:00 12/31/18 09:10 17 GM Psyllium Hydrophilic Mucilloid (Metamucil Fiber Packet) 1 pkt DAILY 12/31/18 09:00 12/31/18 09:10 1 PKT Sodium Chloride 1,000 ml @ 1,000 mls/hr 1X ONCE 12/30/18 16:30 12/30/18 17:29 DC 12/30/18 17:02 1,000 MLS/HR Zolpidem Tartrate (Ambien) 5 mg PRN QHS PRN 12/30/18 23:00 12/30/18 23:11 5 MG Labs: Lab Laboratory Tests Test 12/30/18 16:42 12/30/18 18:14 White Blood Count 13.9 x10^3/uL (4.0-11.0) Red Blood Count 5.08 x10^6/uL (4.30-5.70) Hemoglobin 15.7 g/dL (13.0-17.5) Hematocrit 46.6 % (39.0-53.0) Mean Corpuscular Volume 92 fL (79-100) Mean Corpuscular Hemoglobin 31 pg (25-35) Mean Corpuscular Hemoglobin Concent 34 g/dL (31-37) Red Cell Distribution Width 13.0 % (11.5-14.5) Platelet Count 289 x10^3/uL (140-400) Neutrophils (%) (Auto) 77 % (31-73) Lymphocytes (%) (Auto) 13 % (24-48) Monocytes (%) (Auto) 8 % (0-9) Eosinophils (%) (Auto) 2 % (0-3) Basophils (%) (Auto) 1 % (0-3) Neutrophils # (Auto) 10.7 x10^3/uL (1.8-7.7) Lymphocytes # (Auto) 1.9 x10^3/uL (1.0-4.8) Monocytes # (Auto) 1.0 x10^3/uL (0.0-1.1) Eosinophils # (Auto) 0.3 x10^3/uL (0.0-0.7) Basophils # (Auto) 0.1 x10^3/uL (0.0-0.2) Sodium Level 143 mmol/L (136-145) Potassium Level 3.9 mmol/L (3.5-5.1) Chloride Level 108 mmol/L (98-107) Carbon Dioxide Level 26 mmol/L (21-32) Anion Gap 9 (6-14) Blood Urea Nitrogen 13 mg/dL (8-26) Creatinine 0.9 mg/dL (0.7-1.3) Estimated GFR (Cockcroft-Gault) 90.4 BUN/Creatinine Ratio 14 (6-20) Glucose Level 111 mg/dL (70-99) Calcium Level 8.9 mg/dL (8.5-10.1) Total Bilirubin 0.4 mg/dL (0.2-1.0) Aspartate Amino Transf (AST/SGOT) 18 U/L (15-37) Alanine Aminotransferase (ALT/SGPT) 42 U/L (16-63) Alkaline Phosphatase 69 U/L (46-116) Total Protein 7.6 g/dL (6.4-8.2) Albumin 4.1 g/dL (3.4-5.0) Albumin/Globulin Ratio 1.2 (1.0-1.7) Lipase 142 U/L (73-393) Urine Collection Type Unknown Urine Color Yellow Urine Clarity Clear Urine pH 6.0 Urine Specific [place] >=1.030 Urine Protein Negative mg/dL (NEG-TRACE) Urine Glucose (UA) Negative mg/dL (NEG) Urine Ketones (Stick) Negative mg/dL (NEG) Urine Blood Negative (NEG) Urine Nitrite Negative (NEG) Urine Bilirubin Negative (NEG) Urine Urobilinogen Dipstick 0.2 mg/dL (0.2 mg/dL) Urine Leukocyte Esterase Negative (NEG) Urine RBC 1-2 /HPF (0-2) Urine WBC 1-4 /HPF (0-4) Urine Squamous Epithelial Cells Mod /LPF Urine Bacteria 0 /HPF (0-FEW) Objective: Assessment: Pt seen and examined [id number] IMP: Diverticulitis Plan: Plan of Care cont cipro 500 mg po bid and flagyl 500mg po q8hrs for a total of 10 days pt is eager for dc home ok to dc from id standpoint probiotics D/W Girlfriend d/w JOSELUIS SHEPHERD MD Dec 31, 2018 09:54
--- NOTE | 2018-12-31 10:02 | CONS ---
DATE OF CONSULTATION: 12/31/2018 REFERRING PHYSICIAN: Marlene Rice MD REASON FOR CONSULTATION: Diverticulitis. 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 It did not improve with changing his diet. He did not take any pain medication and he was tachycardic. White count was 13.9. He has a history of diverticulitis a couple of years ago. He denies any fevers, chills, nausea, vomiting, symptoms, rash, headache, visual disturbances, back pain. The patient was given ceftriaxone and metronidazole then was continued on Cipro and Flagyl. Today, the patient tolerated p.o. fluids well. Denies any fevers, chills, nausea, vomiting. Abdominal pain is improving. He is ambulating in the room without difficulty. He has passed stool, no blood in stool. The patient is hungry. PAST MEDICAL HISTORY: History of diverticulitis. CURRENT MEDICATIONS: Cipro and Flagyl. The patient received ceftriaxone and Flagyl in the ER. ALLERGIES: No known drug allergies. SOCIAL HISTORY: Rare alcohol, no drugs. Girlfriend at bedside. REVIEW OF SYSTEMS: Negative except for above in HPI. PHYSICAL EXAMINATION: VITAL SIGNS: Temperature 98, pulse 81, respiratory rate 18, blood pressure 125/72, oxygen saturation 98% on room air. GENERAL: Alert and oriented x 3 male in no acute distress, lying in bed comfortably, pleasant, cooperative. HEENT: Normocephalic, atraumatic, anicteric. Oral mucosa moist. NECK: Supple, no JVD. LUNGS: Clear bilaterally. HEART: S1, S2. No gallops or murmurs. ABDOMEN: Soft, mild tenderness present in the left lower quadrant. No guarding, no rigidity, no rebound. EXTREMITIES: No edema, no cyanosis, no clubbing. DERMATOLOGIC: Warm and dry. No generalized rash. NEUROLOGIC: Alert and oriented x 3, grossly nonfocal. PSYCHIATRIC: Cooperative, appropriate mood and affect. LABORATORY DATA: WBC 13.9, hemoglobin 15.7, hematocrit 46.6, platelets 289, neutrophils 77. Sodium 143, potassium 3.9, chloride 108, bicarbonate 26, BUN 13, creatinine 0.9, glucose 111, calcium 8.9. LFTs within normal limits. Lipase 142. UA, leukocyte esterase negative, 1-4 wbc's. IMAGING: CT, sigmoid colon diverticulitis. No abscess evident. Appendix is negative. IMPRESSION: 1. Sepsis. 2. Leukocytosis. 3. Acute sigmoid diverticulitis. RECOMMENDATIONS: 1. Continue Cipro and metronidazole. 2. The patient is eager for discharge today. 3. If discharged, the patient can be given 10 days of Cipro and Flagyl. 4. Side effects discussed with the patient. 5. Probiotics. 6. Continue supportive care. 7. Advance diet as tolerated. 8. Discussed with the girlfriend at bedside. 9. Discussed with RN. Thank you for consulting Infectious Disease to participate in this patient's care. JOSELUIS LAW MD DR: [email or web address] JOB#: [id number] / [id number]
[2018-12-31 11:00] VITALS: BP 120/73
[2018-12-31] MEDS ORDERED: METR500T PO (12:15)
[2018-12-31] MEDS ORDERED: POLY17PO28 PO (12:15)
[2018-12-31] MEDS ORDERED: DOCU100C28 PO (12:15)
[2018-12-31] MEDS ORDERED: PSYL3.4P PO (12:15)
[2018-12-31] MEDS ORDERED: CIPR500T PO (12:15)
--- NOTE | 2018-12-31 12:19 | PDOC3 ---
Discharge Summary Visit Information Date of Admission: Dec 30, 2018 Date of Discharge: Dec 31, 2018 Admitting Diagnosis: Diverticulitis Final Diagnosis Problems Medical Problems: (1) Diverticulitis Status: Acute Brief Hospital Course Allergies Allergies Coded Allergies Type Severity Reaction Last Updated Verified No Known Drug Allergies 12/30/18 No Vital Signs Vital Signs Date Time Temp Pulse Resp B/P (MAP) Pulse Ox O2 Delivery O2 Flow Rate FiO2 12/31/18 11:00 98.1 65 16 120/73 (89) 98 Room Air 98.1 Lab Results Laboratory Tests Test 12/30/18 16:42 12/30/18 18:14 White Blood Count 13.9 x10^3/uL (4.0-11.0) Red Blood Count 5.08 x10^6/uL (4.30-5.70) Hemoglobin 15.7 g/dL (13.0-17.5) Hematocrit 46.6 % (39.0-53.0) Mean Corpuscular Volume 92 fL (79-100) Mean Corpuscular Hemoglobin 31 pg (25-35) Mean Corpuscular Hemoglobin Concent 34 g/dL (31-37) Red Cell Distribution Width 13.0 % (11.5-14.5) Platelet Count 289 x10^3/uL (140-400) Neutrophils (%) (Auto) 77 % (31-73) Lymphocytes (%) (Auto) 13 % (24-48) Monocytes (%) (Auto) 8 % (0-9) Eosinophils (%) (Auto) 2 % (0-3) Basophils (%) (Auto) 1 % (0-3) Neutrophils # (Auto) 10.7 x10^3/uL (1.8-7.7) Lymphocytes # (Auto) 1.9 x10^3/uL (1.0-4.8) Monocytes # (Auto) 1.0 x10^3/uL (0.0-1.1) Eosinophils # (Auto) 0.3 x10^3/uL (0.0-0.7) Basophils # (Auto) 0.1 x10^3/uL (0.0-0.2) Sodium Level 143 mmol/L (136-145) Potassium Level 3.9 mmol/L (3.5-5.1) Chloride Level 108 mmol/L (98-107) Carbon Dioxide Level 26 mmol/L (21-32) Anion Gap 9 (6-14) Blood Urea Nitrogen 13 mg/dL (8-26) Creatinine 0.9 mg/dL (0.7-1.3) Estimated GFR (Cockcroft-Gault) 90.4 BUN/Creatinine Ratio 14 (6-20) Glucose Level 111 mg/dL (70-99) Calcium Level 8.9 mg/dL (8.5-10.1) Total Bilirubin 0.4 mg/dL (0.2-1.0) Aspartate Amino Transf (AST/SGOT) 18 U/L (15-37) Alanine Aminotransferase (ALT/SGPT) 42 U/L (16-63) Alkaline Phosphatase 69 U/L (46-116) Total Protein 7.6 g/dL (6.4-8.2) Albumin 4.1 g/dL (3.4-5.0) Albumin/Globulin Ratio 1.2 (1.0-1.7) Lipase 142 U/L (73-393) Urine Collection Type Unknown Urine Color Yellow Urine Clarity Clear Urine pH 6.0 Urine Specific [place] >=1.030 Urine Protein Negative mg/dL (NEG-TRACE) Urine Glucose (UA) Negative mg/dL (NEG) Urine Ketones (Stick) Negative mg/dL (NEG) Urine Blood Negative (NEG) Urine Nitrite Negative (NEG) Urine Bilirubin Negative (NEG) Urine Urobilinogen Dipstick 0.2 mg/dL (0.2 mg/dL) Urine Leukocyte Esterase Negative (NEG) Urine RBC 1-2 /HPF (0-2) Urine WBC 1-4 /HPF (0-4) Urine Squamous Epithelial Cells Mod /LPF Urine Bacteria 0 /HPF (0-FEW) Laboratory Tests Test 12/30/18 16:42 12/30/18 18:14 White Blood Count 13.9 x10^3/uL (4.0-11.0) Red Blood Count 5.08 x10^6/uL (4.30-5.70) Hemoglobin 15.7 g/dL (13.0-17.5) Hematocrit 46.6 % (39.0-53.0) Mean Corpuscular Volume 92 fL (79-100) Mean Corpuscular Hemoglobin 31 pg (25-35) Mean Corpuscular Hemoglobin Concent 34 g/dL (31-37) Red Cell Distribution Width 13.0 % (11.5-14.5) Platelet Count 289 x10^3/uL (140-400) Neutrophils (%) (Auto) 77 % (31-73) Lymphocytes (%) (Auto) 13 % (24-48) Monocytes (%) (Auto) 8 % (0-9) Eosinophils (%) (Auto) 2 % (0-3) Basophils (%) (Auto) 1 % (0-3) Neutrophils # (Auto) 10.7 x10^3/uL (1.8-7.7) Lymphocytes # (Auto) 1.9 x10^3/uL (1.0-4.8) Monocytes # (Auto) 1.0 x10^3/uL (0.0-1.1) Eosinophils # (Auto) 0.3 x10^3/uL (0.0-0.7) Basophils # (Auto) 0.1 x10^3/uL (0.0-0.2) Sodium Level 143 mmol/L (136-145) Potassium Level 3.9 mmol/L (3.5-5.1) Chloride Level 108 mmol/L (98-107) Carbon Dioxide Level 26 mmol/L (21-32) Anion Gap 9 (6-14) Blood Urea Nitrogen 13 mg/dL (8-26) Creatinine 0.9 mg/dL (0.7-1.3) Estimated GFR (Cockcroft-Gault) 90.4 BUN/Creatinine Ratio 14 (6-20) Glucose Level 111 mg/dL (70-99) Calcium Level 8.9 mg/dL (8.5-10.1) Total Bilirubin 0.4 mg/dL (0.2-1.0) Aspartate Amino Transf (AST/SGOT) 18 U/L (15-37) Alanine Aminotransferase (ALT/SGPT) 42 U/L (16-63) Alkaline Phosphatase 69 U/L (46-116) Total Protein 7.6 g/dL (6.4-8.2) Albumin 4.1 g/dL (3.4-5.0) Albumin/Globulin Ratio 1.2 (1.0-1.7) Lipase 142 U/L (73-393) Urine Collection Type Unknown Urine Color Yellow Urine Clarity Clear Urine pH 6.0 Urine Specific Roslyn >=1.030 Urine Protein Negative mg/dL (NEG-TRACE) Urine Glucose (UA) Negative mg/dL (NEG) Urine Ketones (Stick) Negative mg/dL (NEG) Urine Blood Negative (NEG) Urine Nitrite Negative (NEG) Urine Bilirubin Negative (NEG) Urine Urobilinogen Dipstick 0.2 mg/dL (0.2 mg/dL) Urine Leukocyte Esterase Negative (NEG) Urine RBC 1-2 /HPF (0-2) Urine WBC 1-4 /HPF (0-4) Urine Squamous Epithelial Cells Mod /LPF Urine Bacteria 0 /HPF (0-FEW) Brief Hospital Course Mr Jeff is a 48 year old male, primarily occitan speaking, who presents with left lower abdominal pain ongoing for week. Worse with movement, pain 6/10, no diarrhea, no n.v, no fever. BM does not improve pain. CT findings consistent with sigmoid diverticulitis. Pain improved, transitioning to PO antibiotics this morning, added bowel regimen. Discussed low residue diet. He is somewhat anxious for d/c. I initially told him possibly home tomorrow morning, but if he tolerates PO well throughout the day without pain and has a BM he can go home later. A/P: Sepsis - leukocytosis, tachycardia, diverticulitis found. IVF and empiric cipro and flagyl initiated Diverticulitis - will place on fiber supplement, cont antibiotics Greater than 30 minutes spent with chart review, scripts and orders on discharge Discharge Information Condition at Discharge: Improved Follow Up: Weeks (1) Disposition/Orders: D/C to Home Scheduled Ciprofloxacin Hcl (Ciprofloxacin Hcl) 500 Mg Tablet, 1 TAB PO BID for Divert iculitis for 10 Days, #20 Prescribed by: FLAVIO VENTURA MD on 12/31/18 1215 Docusate Sodium (Docusate Sodium) 100 Mg Capsule, 100 MG PO DAILY for Constipation for 10 Days, #10 Prescribed by: FLAVIO VENTURA MD on 12/31/18 1215 Metronidazole (Flagyl) 500 Mg Tablet, 500 MG PO Q8HRS for Diverticulitis for 10 Days, #30 Prescribed by: FLAVIO VENTURA MD on 12/31/18 1215 Polyethylene Glycol 3350 (Polyethylene Glycol 3350) 17 Gm Powd.pack, 17 GM PO DAILY for constipation for 10 Days, #10 Prescribed by: FLAVIO VENTURA MD on 12/31/18 1215 Psyllium Husk/Aspartame (Metamucil Fiber Singles Packet) 3.4 Gm Powd.pack, 1 PKT PO DAILY for Constipation for 10 Days, #10 Prescribed by: FLAVIO VENTURA MD on 12/31/18 1215 FLAVIO VENTURA MD Dec 31, 2018 12:19
[2018-12-31 15:00] VITALS: BP 120/67
[2018-12-31] MEDS ORDERED: OXYC1TAB15 PO (15:14)
--- NOTE | 2018-12-31 19:58 | NUR ---
Discharge Note: Patient was discharged home with self care. Patients IV was discontinued without any complications per RN. Patient was given discharge summary/instructions, follow-ups and educational material. All of patients prescriptions were sent to his preferred pharmacy. Patient did not have any further questions or concerns. Patient ambulated to the main entrance with all personal belongings accompanied by KERA Soto, where his family member was waiting for him to take him home.
[2018-12-31] MEDS ORDERED: LACTOBACILLUS RHAMNOSUS GG 1 CAPSULE. PO SCH (21:00)
== END 2018-12-31 19:00 | disposition home or self-care (01) | DRG 872 ==
LOC: ER 15:44 → 5 SOUTH 17:55
PROVIDERS: ADMIT Internal Medicine; ATTEND Internal Medicine
DX: A41.9 Sepsis, unspecified organism (principal); J98.11 Atelectasis; K57.32 Diverticulitis of large intestine without perforation or abscess without bleeding; M48.04 Spinal stenosis, thoracic region; Z79.899 Other long term (current) drug therapy
CPT/HCPCS: 36415; 74177; 80053; 81001; 83690; 85025; 96361; 96365; 96375; J0696; J2270; J2405; J3490; J7030; Q9967; 99285-25; G0378